=== PATIENT | female | born 1930 | race Caucasian/White ===

== ENCOUNTER 2016-04-28 15:57 | Observation (INO) | payer OTHER ==
[~2016-04-28] VITALS: Ht 165.1 cm; Wt 40.0 kg
[~2016-04-28 15:57] MED LIST: AKWA TEARS15 ML BOTH EYES; ASPIR-LOW81 MG PO; CALCIUM 500 +1 EAC2 PO; COLACE100 MG PO; CYANOCOBALAM1000 MCG PO; DULCOLAX10 MG PR; ENDOCET 5-3251 EACH PO; ENEMA133 M2 PR; FERROUS SULFAT325 MG PO; LIDOCAINE700 MG TD; LIDODERM 5% P1 PATCH TD; LIPITOR20 MG PO; LO-DOSE ASPIRIN81 M1 PO; MILK OF MAGN PO; MIRALAX255 GM PO; MIRTAZAPINE7.5 MG PO; OYSTER SHELL W1 EACH PO; PERCOCET 5/31 TABLET PO; POLYVINYL ALCOH15 ML BOTH EYES; PRILOSEC40 MG PO; SYNTHROID25 MCG PO; TYLENOL EXTRA500 MG PO; TYLENOL REGULA325 MG PO; VITAMIN D31000 UNIT PO
[2016-04-28 16:28] LABS: EOSINOPHIL (%) 1.6 % (0-5); EOSINOPHIL COUNT 0.1 K/uL (0-0.3); HEMATOCRIT 38.5 % (36.0-46.0); IMMATURE GRANULOCYTE (%) 0.2 % (0.0-0.7); IMMATURE GRANULOCYTE COUNT 0.1 K/uL; LYMPHOCYTE COUNT 1.5 K/uL (1.0-2.8); MCH 30.9 PG (29.0-34.0); MCHC 33.2 G/DL (30.0-36.0); MEAN PLAT.VOLUME 9.6 uM^3 (9.5-12.4); MONOCYTE (%) 11.8 % (3-12); MONOCYTE COUNT 0.7 K/uL (0-0.8); NEUTROPHIL (%) 59.5 % (45-76); NEUTROPHIL COUNT 3.3 K/uL (1.8-6.4); PLATELET COUNT 238 K/uL (156-360); RBC DIS.WIDTH-SD 46.1 % (39-53); RED BLOOD COUNT 4.14 M/uL (3.80-5.20); WHITE BLOOD COUNT 5.5 K/uL (4.1-10.2)
[2016-04-28 16:38] LABS: CHLORIDE 101 mEq/L (99-109); POTASSIUM 3.9 mEq/L (3.7-5.4); SODIUM 136 mEq/L (136-147)
[2016-04-28 16:40] LABS: GLUCOSE 100 mg/dL (70-99)
[2016-04-28 16:41] LABS: ANION GAP 11 MEQ/L (2-14)
[2016-04-28 16:42] LABS: PROTHROMBIN TIME 10.6 (9.2-11.2); PTT 27.6 (25-32)
[2016-04-28 16:44] LABS: GFR ESTIMATE (CALCULATED) > 59 mL/min/; UREA NITROGEN (BUN) 10 mg/dL (9-23)
[2016-04-28 16:51] LABS: TROP-I INTERPRETATION NEGATIVE; TROPONIN-I < 0.01 ng/mL (0.0-0.30)
[2016-04-28] MEDS ORDERED: CHILD ASPIRIN81 M1 PO (18:51)
[2016-04-28] MEDS ORDERED: OMEPRAZOLE40 M1 PO (18:51)
[2016-04-28] MEDS ORDERED: SUPER CALCIUM600 MG PO (18:52)
[2016-04-28] MEDS ORDERED: COLCRYS0.6 MG PO (18:54)
[2016-04-28] MEDS ORDERED: ULTRAM50 MG PO (18:56)
[2016-04-28] MEDS ORDERED: SENOKOT S,PE1 TABLET PO (18:57)
[2016-04-28] MEDS ORDERED: PHENIRAMINE BOTH EYES (19:00)
[2016-04-28] MEDS ORDERED: NAPHAZOLINE BOTH EYES (19:00)
[2016-04-28] MEDS ORDERED: TYLENOL EXTRA500 MG PO (19:01)
[2016-04-28] MEDS ORDERED: MUSCLE RUB CREA85 GM TP (19:02)
[2016-04-28 23:57] VITALS: BP 158/87
[2016-04-29] VITALS: BP 142/73
[2016-04-29 04:38] LABS: TROP-I INTERPRETATION NEGATIVE; TROPONIN-I 0.01 ng/mL (0.0-0.30)
[2016-04-29 04:40] VITALS: BP 110/60
[2016-04-29 08:39] VITALS: BP 109/72
[2016-04-29 13:00] VITALS: BP 124/67
[2016-04-29 13:25] LABS: TROP-I INTERPRETATION NEGATIVE; TROPONIN-I < 0.01 ng/mL (0.0-0.30)
[2016-04-29 20:23] VITALS: BP 124/60
== END 2016-04-29 22:35 | disposition home or self-care (01) ==
LOC: EME 15:57 → 5WEST 21:54 → EDOF 21:54 → 5WEST 23:26
PROVIDERS: Emergency Medicine; Internal Medicine
DX: R07.89 Other chest pain (principal); F03.90 Unspecified dementia, unspecified severity, without behavioral disturbance, psychotic disturbance, mood disturbance, and anxiety; I25.10 Atherosclerotic heart disease of native coronary artery without angina pectoris; Z79.82 Long term (current) use of aspirin
CPT/HCPCS: 71020; 80048; 84484; 85025; 85610; 85730; 93005; 99281; 99285; G0378; J1650

== ENCOUNTER 2017-01-20 15:13 | Observation (INO) | payer OTHER ==
[~2017-01-20] VITALS: Ht 160 cm; Wt 40.4 kg
[~2017-01-20 15:13] MED LIST changes: +CHILD ASPIRIN81 M1 PO; +COLCRYS0.6 MG PO; +MUSCLE RUB CREA85 GM TP; +NAPHAZOLINE BOTH EYES; +OMEPRAZOLE40 M1 PO; +PHENIRAMINE BOTH EYES; +SENOKOT S,PE1 TABLET PO; +SUPER CALCIUM600 MG PO; +ULTRAM50 MG PO
[2017-01-20 16:00] LABS: EOSINOPHIL (%) 2.1 % (0-5); EOSINOPHIL COUNT 0.1 K/uL (0-0.3); HEMATOCRIT 37.1 % (36.0-46.0); IMMATURE GRANULOCYTE (%) 0.4 % (0.0-0.7); INSTRUMENT ABS NEUTROPHIL CT 3.3 K/uL; LYMPHOCYTE COUNT 1.4 K/uL (1.0-2.8); MCH 31.1 PG (29.0-34.0); MCHC 33.2 G/DL (30.0-36.0); MCV 93.9 FL (83-99); MEAN PLAT.VOLUME 9.5 uM^3 (9.5-12.4); MONOCYTE (%) 13.6 % (3-12); MONOCYTE COUNT 0.8 K/uL (0-0.8); NEUTROPHIL (%) 58.3 % (45-76); NEUTROPHIL COUNT 3.3 K/uL (1.8-6.4); PLATELET COUNT 217 K/uL (156-360); RBC DIS.WIDTH-CV 13.4 % (11.8-14.6); RBC DIS.WIDTH-SD 46.4 % (39-53); RED BLOOD COUNT 3.95 M/uL (3.80-5.20); WHITE BLOOD COUNT 5.7 K/uL (4.1-10.2)
[2017-01-20 16:05] LABS: PROTHROMBIN TIME 10.9 SEC (10.2-12.9)
[2017-01-20 16:08] LABS: PTT 31.4 SEC (25-37)
[2017-01-20 16:21] LABS: TROP-I INTERPRETATION NEGATIVE; TROPONIN-I 0.01 ng/mL (0.0-0.30)
[2017-01-20 17:55] LABS: CHLORIDE 98 mEq/L (99-109); POTASSIUM 4.3 mEq/L (3.7-5.4); SODIUM 134 mEq/L (136-147)
[2017-01-20 17:57] LABS: GLUCOSE 91 mg/dL (70-99)
[2017-01-20 17:59] LABS: ANION GAP 9 MEQ/L (2-14)
[2017-01-20 18:01] LABS: GFR ESTIMATE (CALCULATED) > 59 mL/min/
[2017-01-20 18:02] LABS: UREA NITROGEN (BUN) 9 mg/dL (9-23)
[2017-01-20] MEDS ORDERED: REFRESH TEARS15 ML BOTH EYES (18:19)
[2017-01-20] MEDS ORDERED: SERTRALINE HCL50 MG PO (18:22)
[2017-01-20] MEDS ORDERED: ASPERCREME76.5 GM TP (18:25)
[2017-01-20 23:26] VITALS: BP 140/86
[2017-01-21 00:22] LABS: TROP-I INTERPRETATION NEGATIVE; TROPONIN-I < 0.01 ng/mL (0.0-0.30)
[2017-01-21 04:44] VITALS: BP 110/66
[2017-01-21 08:22] LABS: TROP-I INTERPRETATION NEGATIVE; TROPONIN-I < 0.01 ng/mL (0.0-0.30)
[2017-01-21 11:40] VITALS: BP 102/60
[2017-01-21 16:22] VITALS: BP 104/52
== END 2017-01-21 19:24 | disposition home or self-care (01) ==
LOC: EME 15:13 → EDOF 18:11 → 5WEST 18:11 → ENRESERV 18:29 → 5WEST 23:16
PROVIDERS: Emergency Medicine; Family Medicine
DX: R07.9 Chest pain, unspecified (principal); K21.9 Gastro-esophageal reflux disease without esophagitis; D64.9 Anemia, unspecified; I35.0 Nonrheumatic aortic (valve) stenosis; R94.31 Abnormal electrocardiogram [ECG] [EKG]; M19.90 Unspecified osteoarthritis, unspecified site; E03.9 Hypothyroidism, unspecified; F03.90 Unspecified dementia, unspecified severity, without behavioral disturbance, psychotic disturbance, mood disturbance, and anxiety; F41.9 Anxiety disorder, unspecified; F32.9 Major depressive disorder, single episode, unspecified; I25.10 Atherosclerotic heart disease of native coronary artery without angina pectoris; E78.5 Hyperlipidemia, unspecified; M10.9 Gout, unspecified; R64 Cachexia; Z79.82 Long term (current) use of aspirin; Z87.891 Personal history of nicotine dependence; Z88.2 Allergy status to sulfonamides
CPT/HCPCS: 71010; 80048; 84484; 85025; 85610; 85730; 93005; 93306; 99281; 99285; G0378